=== PATIENT | male | born 1960 | race Caucasian/White ===

== ENCOUNTER 2017-01-20 19:58 | Emergency (ER) | payer OTHER ==
[~2017-01-20] VITALS: Ht 170.2 cm; Wt 106.0 kg
[~2017-01-20 19:58] MED LIST: LORTA5 PO; PRED20 PO
[2017-01-20 20:13] VITALS: BP 161/90; PULSE 68; RESP 16; TEMP 98.7; O2SAT 96
--- NOTE | 2017-01-20 21:11 | RADRPT ---
EXAM DATE/TIME: 01/20/2017 20:59 [place] COMPARISON: No previous studies available for comparison. INDICATIONS : Left hand fourth difit pain and swelling. Patient states he think he was bit by something five days a go. MEDICAL HISTORY : Foreign body BB in left hand. SURGICAL HISTORY : None. ENCOUNTER: Initial ACUITY: 4 - 6 days PAIN SCORE: 4/10 LOCATION: Left hand, fourth digit. FINDINGS: Examination of the fourth digit of the left hand demonstrates no evidence of fracture or dislocation. The soft tissues are intact. There is a single BB adjacent to the third metacarpal phalangeal joint along the volar surface. CONCLUSION: 1. No acute fracture or joint dislocation. 2. Single BB adjacent to the third metacarpal phalangeal joint Isaías Amin MD on January 20, 2017 at 21:09 Board Certified Radiologist. This report was verified electronically.
[2017-01-20] MEDS ORDERED: CLIN1CAP6 PO (21:31)
--- NOTE | 2017-01-20 21:31 | PD ---
HPI Chief Complaint: Skin Problem Time Seen by Provider: 20:46 Travel History International Travel<30 days: No Contact w/Intl Traveler<30days: No Traveled to known affect area: No History of Present Illness HPI 56-year-old male with chief complaint of left fourth finger pain. Patient reports she was possibly bitten by an insect yesterday. He reports the area became increasingly more swollen painful today prompting his visit. He reports the pain is constant, worse with palpation of the area, relieved with rest. Severity 4/10. He denies fever or chills. PFSH Past Medical History Medical History: Denies Significant Hx Diminished Hearing: No Tetanus Vaccination: Unknown Influenza Vaccination: No ?: Not Social History Alcohol Use: Yes (SOCIALLY) Tobacco Use: Yes (CHEWS TOBACCO) Substance Use: No Allergies-Medications (Allergen,Severity, Reaction): Coded Allergies: Fish Containing Products (Unverified Adverse Reaction, Intermediate, N&V, 01/06/17) Reported Meds & Prescriptions Reported Meds & Active Scripts Active Clindamycin (Clindamycin HCl) 300 Mg Cap 300 Mg PO Q6H 10 Days Deltasone (Prednisone) 20 Mg Tab 20 Mg PO TID Hydrocodone/Acetaminophen 5 mg/325 mg 1 Tab Tab 1 Tab PO Q6 Review of Systems Except as stated in HPI: all other systems reviewed are Neg General / Constitutional: No: Fever Eyes: No: Visual changes Physical Exam Narrative GENERAL: Well-nourished, well-developed patient. SKIN: Focused skin assessment warm/dry. HEAD: Normocephalic. EYES: No scleral icterus. No injection or drainage. NECK: Supple, trachea midline. No JVD or lymphadenopathy. CARDIOVASCULAR: Regular rate and rhythm without murmurs, gallops, or rubs. RESPIRATORY: Breath sounds equal bilaterally. No accessory muscle use. GASTROINTESTINAL: Abdomen soft, non-tender, nondistended. MUSCULOSKELETAL: No cyanosis, or edema. Left hand: 1.5 cm area of erythema and induration to the left fourth digit distal/medial aspect. The area has a central opening with small amount of serous and was drainage. Patient is able to fully flex and extend the DIP joint. No surrounding cellulitis. No lymphangitis of the left upper extremity Data Data Last Documented VS Vital Signs Date Time Temp Pulse Resp B/P (MAP) Pulse Ox O2 Delivery O2 Flow Rate FiO2 01/20/17 20:13 98.7 68 16 161/90 (113) 96 Orders Orders Finger ([id number]) (01/20/17 ) MDM Medical Decision Making Medical Screen Exam Complete: Yes Emergency Medical Condition: Yes Differential Diagnosis Abscess, cellulitis, infectious tenosynovitis Narrative Course 56-year-old male with chief complaint of left finger pain. Patient reports she was possibly bitten by an insect yesterday. He reports the area became increasingly more swollen painful today prompting his visit. On exam patient has a tender indurated area to the left fourth digit distal/medial aspect. X- ray of the digit was obtained to rule out foreign body. Incision and drainage was performed. The area had very minimal drainage. The patient be put on clindamycin and instructed to follow up for recheck with his doctor in 1-2 days.. Patient verbalizes understanding and agrees to plan. Procedures Procedure Narrative Incision and drainage: The area was prepped with Betadine. 0.25 cc of 1% lidocaine injected to the area. Small incision measuring 3 mm incised over the area of fluctuance. Small amount of serosanguineous drainage expressed. Sterile dressing applied. Diagnosis Primary Impression: Abscess Referrals: Primary Care Physician Additional Instructions: Take the antibiotics as prescribed. Soak the area and is warm Epsom salt soaks several times per day. Follow-up with her primary doctor in 2 days for recheck. Return to emergency department if he developed new or worsening symptoms. Scripts Clindamycin (Clindamycin) 300 Mg Cap 300 MG PO Q6H for Infection for 10 Days, CAP 0 Refills Prov: Ibeth Orr 01/20/17 Disposition: 01 DISCHARGE HOME Condition: Stable Ibeth Orr Jan 20, 2017 21:31
== END 2017-01-20 21:58 | disposition home or self-care (01) ==
LOC: PHEFT 19:58
DX: L02.512 Cutaneous abscess of left hand (principal)
CPT/HCPCS: 26010; 73140